=== PATIENT | male | born 1960 | race Caucasian/White ===

== ENCOUNTER 2016-12-03 15:58 | Outpatient (CLI) | payer OTHER ==
[2016-12-03 16:58] LABS: eGFR (African) > 60; eGFR (Non-African) > 60
== END 2016-12-03 16:00 ==
LOC: LAB 15:58
PROVIDERS: ATTEND Family Medicine
DX: E78.5 Hyperlipidemia, unspecified (principal)
CPT/HCPCS: 36415; 80053; 80061

== ENCOUNTER 2017-01-04 11:15 | Day surgery (SDC) | payer OTHER ==
[~2017-01-04 11:15] MED LIST: LACTATED RINGERS 1,000 ML IV.SOLN IV ONE; LIDOCAINE HCL/PF 2% 100 MG/5 ML VIAL IJ ONE; PROPOFOL 500 MG/50 ML VIAL IV ONE; SALINE FLUSH 10 ML DISP.SYRIN IVF ONE
--- NOTE | 2017-01-04 15:28 | GI Report ---
REFERRING PHYSICIAN: Dr. Atif Ware VERTICAL BORER: Mustapha Akers MD PROCEDURE MEDICATION: Propofol as per anesthesia. INDICATIONS: A 56-year-old man who is referred for a screening colonoscopy. He has never had his colon looked at before. Family history is possible for diverticulitis. His mother has had some type of colon obstruction. His father had part of his colon taken out. No change in bowel habits or blood in the stool that the patient is aware of. PROCEDURE PERFORMED: Colonoscopy with biopsies. PROCEDURE: An Olympus video colonoscope was advanced to the rectum. In the sigmoid, he has diverticular disease. He has a lot of kind of submucosa hemorrhage, edema in the sigmoid colon. Could be mild colitis and could be related to the prep. We did take some random biopsies. The colonoscope was advanced otherwise all the way to the cecum. The appendiceal orifice was normal. The terminal ileum was normal. On slow withdrawal, in the cecum, ascending colon, and transverse colon, there are scattered diverticula in the ascending colon and transverse colon, just a few medium size. In the descending colon, particularly in the sigmoid, there are multiple diverticula and again, in the sigmoid, there is a lot of edema, erythema, kind of a nonspecific pattern. Biopsies were taken to submit to pathology. Patient tolerated the procedure well. FINDINGS: Diverticular disease throughout his whole colon, most significant in the sigmoid with areas of kind of edema, friability. RECOMMENDATIONS: 1. Increase fiber in the diet, such as Benefiber or Metamucil daily. 2. Pending the pathology on the biopsies, consider re-looking at his colon in 5 to 10 years. cc: Dr. Atif TREVINO
== END 2017-01-04 11:16 ==
LOC: OPSURG 11:15
PROVIDERS: ATTEND Internal Medicine Gastroenterology
DX: Z12.11 Encounter for screening for malignant neoplasm of colon (principal); K57.30 Diverticulosis of large intestine without perforation or abscess without bleeding
CPT/HCPCS: 88305; J2001; J2704; J7120; 45380; S1016